=== PATIENT | female | born 1985 | race Caucasian/White ===

== ENCOUNTER 2016-10-11 03:50 | Inpatient (IN) | payer BC ==
[~2016-10-11] VITALS: Ht 160 cm; Wt 78.0 kg
--- NOTE | ~2016-10-11 | FD ---
ADMIT: 10/11/2016 RM/LOC: 228 [facility] MR#: [id number] [address] [address] KURT CASTRO Alvina [address] [place] [id number] Final Diagnosis SEX: F AGE: 31 : 1985 ADMISSION DATE: 10/11/2016 DISCHARGE DATE: 10/12/2016 FINAL DIAGNOSES: 1. Status post spontaneous vaginal delivery. 2. Overweight. 3. Anemia during . PROCEDURE: 1. Spontaneous vaginal delivery. 2. Removal of epidural catheter. Deidre Adamson MD/ hazel JOB #: [id number] CC: Deidre Adamson MD, Attending Physician Deidre Adamson MD, Family Physician
--- NOTE | ~2016-10-11 | OR ---
ADMIT: 10/11/2016 RM/LOC: 228 [facility] MR#: [id number] [address] [address] GLORIAKURT Alvina [address] [place] [id number] Operative/Delivery Room Report SEX: F AGE: 31 : 1985 SURGERY DATE: 10/11/2016 SURGEON: Deidre Adamson MD The patient delivered a viable female infant by spontaneous vaginal delivery at 1056 hours. The was placed on the mother's abdomen, and the cord was doubly clamped and cut. The infant was handed off to the awaiting nurse. Cord blood was sent. The infant's weight was 3440 g. scores were 8 and 9. The placenta then delivered spontaneously intact with a three-vessel cord. Twenty units of Pitocin were infused with intravenous fluids. An examination of the perineum revealed no lacerations. Estimated blood loss for the entire procedure was 300 mL. The patient and are in her room in stable condition. The epidural catheter was removed intact without difficulty at the conclusion of the procedure. Deidre Adamson MD/ jw JOB #: [id number] CC: Deidre Adamson, Attending Physician Deidre Adamson, Family Physician
[2016-10-13] MEDS ORDERED: COLACE-DPS100 MG PO (14:18)
[2016-10-13] MEDS ORDERED: PRENATAL VIT1 TAB PO (14:18)
[2016-10-13] MEDS ORDERED: MOTRIN-DPS800 MG PO (14:18)
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
== END 2016-10-12 14:20 | disposition home or self-care (01) | DRG 775 ==
LOC: BC 03:50 → 2LDRP 03:50 → BC 04:06 → 2LDRP 04:16 → BC 10-20 08:00
PROVIDERS: ADMIT Obstetrics & Gynecology
PROC: 10E0XZZ Delivery of Products of Conception, External Approach (ICD-10-PCS; principal; 2016-10-11)
DX: O99.02 Anemia complicating childbirth (principal); E66.3 Overweight; D64.9 Anemia, unspecified; O99.284 Endocrine, nutritional and metabolic diseases complicating childbirth; Z68.26 Body mass index [BMI] 26.0-26.9, adult; Z3A.38 38 weeks gestation of pregnancy; Z37.0 Single live birth